=== PATIENT | male | born 1985 | race Caucasian/White ===

== ENCOUNTER → 2016-10-11 | Outpatient (CLI) | payer OTHER | LOC: BMCIMAGING 12:43 | PROVIDERS: ATTEND Podiatrist Foot & Ankle Surgery | DX: Z47.89 Encounter for other orthopedic aftercare (principal) ==

== ENCOUNTER → 2016-11-24 | Outpatient (CLI) | payer OTHER | LOC: BMCIMAGING 15:45 | PROVIDERS: ATTEND Podiatrist Foot & Ankle Surgery | DX: Z47.89 Encounter for other orthopedic aftercare (principal); Z98.890 Other specified postprocedural states ==

== ENCOUNTER → 2016-12-17 | Outpatient (CLI) | payer OTHER | LOC: BMCIMAGING 10:20 | PROVIDERS: ATTEND Podiatrist Foot & Ankle Surgery | DX: Z47.89 Encounter for other orthopedic aftercare (principal); Z98.890 Other specified postprocedural states ==

== ENCOUNTER 2017-04-17 16:03 | Emergency (ER) | payer OTHER ==
[2017-04-17 16:12] VITALS: TEMP 98.6
--- NOTE | 2017-04-17 16:17 | EDPHY ---
H & P Stated Complaint: ski injury-face plant into snow-R shoulder/clavicle pain, no nk pain HPI/ROS: HPI CHIEF COMPLAINT: Right shoulder pain. HISTORY OF PRESENT ILLNESS: This patient 31-year-old male otherwise healthy no significant medical history presents emergency room the right shoulder pain. Patient was skiing today. He fell on it is right shoulder. He now has pain localized over the right AC joint. He does have full range of motion of his right arm. His right arm is neurovascular intact. No other areas of injury. This happened a few hours ago. He took ibuprofen prior to arrival. Past Medical History: Denies significant medical history Past Surgical History: Denies significant surgical history Social History: Denies daily use of drugs alcohol tobacco products. Family History: Noncontributory. ROS REVIEW OF SYSTEMS: A comprehensive 10 point review of systems is otherwise negative aside from elements mentioned in the history of present illness. Exam Constitutional triage nursing summary reviewed, vital signs reviewed, awake/ alert. Eyes normal conjunctivae and sclera, EOMI, PERRLA. HENT normal inspection, atraumatic, moist mucus membranes, no epistaxis, neck supple/ no meningismus, no raccoon eyes. Respiratory clear to auscultation bilaterally, normal breath sounds, no respiratory distress, no wheezing. Cardiovascular rate normal, regular rhythm, no murmur, no edema, distal pulses normal. Gastrointestinal soft, non-tender, no rebound, no guarding, normal bowel sounds, no distension, no pulsatile mass. Genitourinary no CVA tenderness. Musculoskeletal right shoulder: Right arm is neurovascular intact good distal pulse. Sensation intact. Good radial pulse. Axillary nerve intact. Tender palpation over the right AC joint with some swelling present. no midline vertebral tenderness, full range of motion, no calf swelling, no tenderness of extremities, no meningismus, good pulses, neurovascularly intact. Skin pink, warm, & dry, no rash, skin atraumatic. Neurologic awake, alert and oriented x 3, AAOx3, moves all 4 extremities equally, motor intact, sensory intact, CN II-XII intact, normal cerebellar, normal vision, normal speech. Psychiatric normal mood/affect. Heme/Lymph/Immune no lymphadenopathy. Differential Diagnosis: Includes but is not limited to in a particular order shoulder contusion, AC joint separation, shoulder dislocation, shoulder fracture. Clavicle fracture. Medical Decision Making: Plan for this patient [place] p.o. here. X-ray right shoulder. Re-evaluation: 1723: X-ray reviewed. This shows AC joint separation. Also at the proximal and/or sternal and of the clavicle there may be a fracture. Patient be consult Orthopedics. Additionally patient be placed in a sling ice pack [place] for pain control. Follow up Orthopedics. 174: I spoke with Dr. Lucero Orthopedics on-call for this AC joint separation. He will be glad to see this patient in follow-up. 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 I asked Dr. Lucero this they are fine with him leaving for 1 week. However he understands to follow up when he gets back immediately with Orthopedics. Stay in his sling. Ice pack for comfort. Pain medicine for comfort. I went over his x-ray with him. Dr. Lucero specifically asked me to get a left shoulder x-ray to compare clavicles. Additionally a special [place] a view of the right clavicle. I will obtain this. However he can be discharged after these x-rays. Return precautions given to the patient. Follow-up care provided. Orthopedic referral. Sling provided. Ice pack. And anti- inflammatory and narcotic pain medicine. He is neurovascularly intact this is a closed injury. Distal pulses appropriate. Sensation intact. Source: Patient - Personal History Current Tetanus/Diphtheria Vaccine: Unsure Current Tetanus Diphtheria and Acellular Pertussis (TDAP): Unsure - Medical/Surgical History Hx Asthma: No Hx Chronic Respiratory Disease: No Hx Diabetes: No Hx Cardiac Disease: No Hx Renal Disease: No Hx Cirrhosis: No Hx Alcoholism: No Hx HIV/AIDS: No Hx Splenectomy or Spleen Trauma: No Other PMH: mitral valve prolapse - Social History Smoking Status: Current some day smoker Constitutional: Initial Vital Signs Temperature (C) 37.0 C 04/17/17 16:10 Heart Rate 86 04/17/17 16:10 Respiratory Rate 16 04/17/17 16:10 Blood Pressure 145/109 H 04/17/17 16:10 O2 Sat (%) 98 04/17/17 16:10 O2 Delivery Mode Room Air Allergies/Adverse Reactions: No Known Allergies Allergy (Unverified 12/30/14 15:51) Home Medications: Medication Instructions Recorded Hydrocodone/APAP 5/325 [[place] 1 - 2 tab PO Q4H PRN #14 tab 04/17/17 5/325] Ibuprofen [Motrin (*)] 800 mg PO Q6-8PRN #14 tab 04/17/17 Medical Decision Making - Data Points Medications Given: Discontinued Medications Hydrocodone Bitart/Acetaminophen ([place] 5/325) 1 tab PO EDNOW ONE Stop: 04/17/17 16:24 Last Admin: 04/17/17 16:32 Dose: 1 tab Departure - Departure Disposition: Home, Routine, Self-Care Clinical Impression: Acromioclavicular joint separation, type 3 Qualifiers: Encounter type: initial encounter Laterality: right Qualified Code(s): S43.101A - Unspecified dislocation of right acromioclavicular joint, initial encounter Condition: Good Instructions: Hydrocodone/Acetaminophen (By mouth), Acromioclavicular Separation (ED) Additional Instructions: 1. Follow up with Orthopedics. Please call their for follow-up appointment. 2. Stay in your sling for comfort. 3. Ice pack as needed for shoulder discomfort. 4. Ibuprofen for mild pain. [place] for severe pain. Referrals: Gabriel Davidson MD [Primary Care Provider] - As per Instructions Wilner Lucero MD [Medical Doctor] - As per Instructions Prescriptions: Hydrocodone/APAP 5/325 [[place] 5/325] 1 - 2 tab PO Q4H PRN #14 tab PRN Reason: Pain, Moderate Ibuprofen [Motrin (*)] 800 mg PO Q6-8PRN #14 tab
[2017-04-17] MEDS ORDERED: HYDROCOD/APAP 5/325 PREPACK#6 BTL TAKEHOME ONE (16:23)
[2017-04-17] MEDS ORDERED: HYDROCODONE/APAP 5/325 TAB PO ONE (16:23)
[2017-04-17 17:48] VITALS: BP 105/65; PULSE 72; RESP 18; O2SAT 93
== END 2017-04-17 18:09 | disposition home or self-care (01) ==
DX: S43.101A Unspecified dislocation of right acromioclavicular joint, initial encounter (principal); F17.200 Nicotine dependence, unspecified, uncomplicated; V00.321A Fall from snow-skis, initial encounter; Y99.8 Other external cause status; Y93.23 Activity, snow (alpine) (downhill) skiing, snowboarding, sledding, tobogganing and snow tubing